=== PATIENT | female | born 1970 | race Caucasian/White ===

== ENCOUNTER 2018-11-12 15:17 | Emergency (ER) | payer MEDICARE, OTHER ==
--- NOTE | 2018-11-12 15:45 | EDM.PDOC ---
ED HPI GENERAL MEDICAL PROBLEM - General Chief Complaint: Drug or Alcohol Abuse Stated Complaint: AMB. Time Seen by Provider: 11/12/18 15:32 - History of Present Illness INITIAL COMMENTS - FREE TEXT/NARRATIVE: HISTORY AND PHYSICAL: History of present illness: The patient is a 48-year-old female who is a type I diabetic who usually uses an insulin pump and comes via EMS after the family called EMS for the patient acting not like herself after drinking large amounts of alcohol. There were concerned about her slurring of her speech because she is a diabetic and they thought her sugar might be out of control. The patient here says she did drink large amounts of alcohol which she never does and she did not eat much food today. She did remove her insulin pump at the house prior to coming here. Her blood sugar by EMS was 170 and here in the ED is 140. The patient denies any chest pain shortness of breath recent falls any pain to her extremities abdomen and she has no nausea or vomiting. She's not had polyuria or polydipsia and she openly admits that she has had high blood sugars in the past with DKA and her sugars have been better controlled with the insulin pump. She follows with [facility] and has a provider there for follow-up. The patient denies that she has an unsafe environment and that she is in any risk but just keeps repeating that she drank a lot of alcohol today. Review of systems: As per history of present illness and below otherwise all systems reviewed and negative. Past medical history: As per history of present illness and as reviewed below otherwise noncontributory. Surgical history: As per history of present illness and as reviewed below otherwise noncontributory. Social history: No reported history of drug or alcohol abuse. Family history: As per history of present illness and as reviewed below otherwise noncontributory. Physical exam: General: Well-developed well-nourished female who is nontoxic and moves all extremities. Vital signs noted by me. The patient does have some slurring of her speech but is speaking clearly and answering questions appropriately HEENT: Atraumatic, normocephalic, pupils reactive, sclera are injected, negative for conjunctival pallor or scleral icterus, mucous membranes moist, throat clear, neck supple, nontender, trachea midline. Lungs: Clear to auscultation, breath sounds equal bilaterally, chest nontender. Heart: S1S2, regular rhythm is highly tachycardic rate of my evaluation but no overt murmurs Abdomen: Soft, nondistended, nontender. Negative for masses or hepatosplenomegaly. Negative for costovertebral tenderness. Pelvis: Stable nontender. Genitourinary: Deferred. Rectal: Deferred. Extremities: Atraumatic, negative for cords or calf pain. Neurovascular unremarkable. The patient moves all extremities without defects deficits or tenderness Neuro: Awake, alert, oriented. Cranial nerves II through XII unremarkable. Cerebellum unremarkable. Motor and sensory unremarkable throughout. Exam nonfocal. Back: There are no midline step-offs tenderness defects the thoracic or lumbar spine and no soft tissue injuries are visualized Skin: I do not see any evidence of any rashes lesions or trauma Diagnostics: [employer]: [] I specifically asked the patient a number of times when it is that I can offer her here in the ED and she says nothing area her [id number] is at bedside and seems to be very attentive to her and also says that she just drank too much alcohol and that something she never does and that she is happy to take her home. The paramedics were concerned about the home situation as there seemed to be some conflicting stories about today's events and we will notify police of this information so that they can be in the loop and intervene as needed. I specifically asked the patient and [id number] if she feels comfortable going back to her house and they said yes. Nursing will notify police prior to the patient's discharge Impression: Alcohol intoxication Definitive disposition and diagnosis as appropriate pending reevaluation and review of above. - Related Data Allergies Allergy/AdvReac Type Severity Reaction Status Date / Time aspirin Allergy Anaphylactic Verified 11/12/18 15:25 Shock Home Meds: Home Meds Insulin Aspart [Novolog Flexpen] 4 - 12 unit SQ BEDTIME #2 pen 05/19/15 [Rx] Insulin Glarg,Human.Rec.Analog [LantUS Solostar] 35 units SUBCUT BEDTIME #1 pen 05/19/15 [Rx] Levofloxacin [Levaquin] 500 mg PO Q24H #11 tablet 05/19/15 [Rx] Lisinopril 20 mg PO DAILY #30 tablet 05/19/15 [Rx] Past Medical History HEENT History: Reports: None Cardiovascular History: Reports: Hypertension Respiratory History: Reports: None Gastrointestinal History: Reports: None Genitourinary History: Reports: Other (See Below) Other Genitourinary History: Michael syndrome RESOURCING CONSULTANT History: Reports: None Musculoskeletal History: Reports: None Neurological History: Reports: None Psychiatric History: Reports: None Endocrine/Metabolic History: Reports: Diabetes, Type II Hematologic History: Reports: None Immunologic History: Reports: None Oncologic (Cancer) History: Reports: Cervix Dermatologic History: Reports: None - Past Surgical History Head Surgeries/Procedures: Reports: None HEENT Surgical History: Reports: None Cardiovascular Surgical History: Reports: None Respiratory Surgical History: Reports: None GI Surgical History: Reports: None Female Surgical History: Reports: None Neurological Surgical History: Reports: None Musculoskeletal Surgical History: Reports: None Oncologic Surgical History: Reports: None Dermatological Surgical History: Reports: None Social & Family History - Family History Family Medical History: Noncontributory ED ROS GENERAL - Review of Systems Review Of Systems: ROS reveals no pertinent complaints other than HPI. ED EXAM, GENERAL - Physical Exam Exam: See Below (See dictation) Course - Vital Signs Last Recorded V/S: Last Vital Signs Temp 37.1 C 11/12/18 15:17 Pulse 70 11/12/18 15:17 Resp 16 11/12/18 15:17 BP 188/110 H 11/12/18 15:17 Pulse Ox 98 11/12/18 15:17 - Orders/Labs/Meds Labs: Laboratory Tests 11/12/18 Range/Units 15:37 POC Glucose 149 H (60-110) mg/dL Departure - Departure Time of Disposition: 15:45 Disposition: Home, Self-Care 01 Condition: Good Clinical Impression: Alcohol intoxication Qualifiers: Complication of substance-induced condition: uncomplicated Qualified Code(s): F10.920 - Alcohol use, unspecified with intoxication, uncomplicated Type 1 diabetes mellitus Qualifiers: Diabetes mellitus complication status: without complication Qualified Code(s): E10.9 - Type 1 diabetes mellitus without complications - Discharge Information Referrals: PCP,Unknown [Primary Care Provider] - Additional Instructions: The following information is given to patients seen in the emergency department who are being discharged to home. This information is to outline your options for follow-up care. We provide all patients seen in our emergency department with a follow-up referral. The need for follow-up, as well as the timing and circumstances, are variable depending upon the specifics of your emergency department visit. If you don't have a primary care physician on staff, we will provide you with a referral. We always advise you to contact your personal physician following an emergency department visit to inform them of the circumstance of the visit and for follow-up with them and/or the need for any referrals to a consulting specialist. The emergency department will also refer you to a specialist when appropriate. This referral assures that you have the opportunity for followup care with a specialist. All of these measure are taken in an effort to provide you with optimal care, which includes your followup. Under all circumstances we always encourage you to contact your private physician who remains a resource for coordinating your care. When calling for followup care, please make the office aware that this follow-up is from your recent emergency room visit. If for any reason you are refused follow-up, please contact the [facility] emergency department at and ask to speak to the emergency department charge nurse. [address] [place] [address] Please check your blood sugar every 1-2 hours for the next 6 hours before reconnecting her insulin pump to assure that her blood sugar doesn't fall subacute sleep. Please try to eat some food and push some hydration. Please do not drink anymore alcohol. Please schedule a follow-up appointment with your provider in the clinic for further care and evaluation and return to ER as needed and as discussed
[2018-11-12 17:54] VITALS: BP 150/95
== END 2018-11-12 16:01 | disposition home or self-care (01) ==
LOC: MW.ED 15:17
DX: F10.120 Alcohol abuse with intoxication, uncomplicated (principal); E10.9 Type 1 diabetes mellitus without complications; I10 Essential (primary) hypertension; Z88.6 Allergy status to analgesic agent
CPT/HCPCS: 82962; 99283; 99284